=== PATIENT | female | born 1980 | race Caucasian/White ===

== ENCOUNTER 2020-06-07 08:00 | Outpatient (RCR) | payer BC ==
[~2020-06-07] VITALS: Ht 162.6 cm; Wt 79.5 kg
[2020-06-07] MEDS ORDERED: RIME75TA PO (08:14)
[2020-06-07] MEDS ORDERED: ZOLP10TA PO (08:41)
[2020-06-07] MEDS ORDERED: BACL10TA PO (08:41)
[2020-06-07] MEDS ORDERED: PREG225C PO (08:41)
[2020-06-07] MEDS ORDERED: MONT10TA97 PO (08:41)
[2020-06-07] MEDS ORDERED: DULO60CA6 PO (08:41)
== END 2020-06-07 11:52 | disposition home or self-care (01) ==
LOC: PREOP 08:00
PROVIDERS: ATTEND Podiatrist Foot & Ankle Surgery
DX: Z01.818 Encounter for other preprocedural examination (principal); M20.11 Hallux valgus (acquired), right foot

== ENCOUNTER 2020-06-12 06:06 | Day surgery (SDC) | payer BC ==
[~2020-06-12] VITALS: Ht 162.6 cm; Wt 79.5 kg
[2020-06-12] VITALS (8 sets, daily range): BP systolic 103–116; BP diastolic 62–84
[~2020-06-12 06:06] MED LIST: BACL10TA PO; DULO60CA6 PO; MONT10TA32 PO; PREG225C PO; RIME75TA PO; ZOLP10TA PO
[2020-06-12] MEDS ORDERED: LACTATED RINGERS 1,000 ML IV PRN (06:15)
[2020-06-12] MEDS ORDERED: ceFAZolin INJECTION 1,000 MG in WATER (STERILE) FOR INJECTION 10 ML IV ONE (06:15)
[2020-06-12] MEDS ORDERED: PROPOFOL INJECTION 50 ML IV ONE (07:01)
[2020-06-12] MEDS ORDERED: LIDOCAINE PF 2% 5 ML (XYLOCAINE) VIAL ONE (07:02)
[2020-06-12] MEDS ORDERED: MIDAZOLAM 2 MG/2 ML (VERSED) VIAL ONE (07:02)
[2020-06-12] MEDS ORDERED: fentaNYL INJECTION 100 MCG/2 ML AMP ONE (07:02)
[2020-06-12] MEDS ORDERED: BUPIVACAINE 0.5% 30 ML (SENSORCAINE) VIAL ONE (07:07)
[2020-06-12] MEDS ORDERED: LIDOCAINE 1% INJ 20 ML 20 ML VIAL ONE (07:07)
--- NOTE | 2020-06-12 07:48 | Progress Note-Pre Operative ---
Pre-Operative Progress Note H&P Reviewed The H&P was reviewed, patient examined and no changes noted. Date Seen by Provider: Jun 12, 2020 Time Seen by Provider: 07:48 Date H&P Reviewed: Jun 12, 2020 Time H&P Reviewed: 07:48 Pre-Operative Diagnosis: Soft tissue lesion right hallux LISA DANIELSON DPM Jun 12, 2020 07:48
[2020-06-12] MEDS ORDERED: HYDROmorphone 2 MG/ML VIAL (DILAUDID) IV ONE (08:45)
[2020-06-12] MEDS ORDERED: LACTATED RINGERS 1,000 ML IV SCH (08:45)
--- NOTE | 2020-06-12 08:45 | Progress Note-Post Operative ---
Post-Operative Progess Note Surgeon (s)/Barrel Leveler (s) Surgeon LISA DANIELSON DPM Barrel Leveler: none Pre-Operative Diagnosis Soft tissue lesion right hallux Post-Operative Diagnosis same, likely Ganglionic Cyst Procedure & Operative Findings Date of Procedure 06/12/20 Procedure Performed/Findings Excision of deep soft tissue mass, right foot Anesthesia Type MAC Estimated Blood Loss Estimated blood loss (mL): Minimal Specimens/Packing Specimens Removed Soft tissue lesion, right hallux Packing: none LISA DANIELSON DPM Jun 12, 2020 08:45
[2020-06-12] MEDS ORDERED: ONDANSETRON 4 MG/2 ML (SDV) Z0FRAN ONE (08:52)
--- NOTE | 2020-06-12 10:34 | OPERATIVE REPORT ---
DATE OF SERVICE: 06/12/2020 SURGEON: Verito Danielson DPM. PREOPERATIVE DIAGNOSIS: Soft tissue lesion, right hallux. POSTOPERATIVE DIAGNOSIS: Soft tissue lesion, right hallux. PROCEDURE PERFORMED: Excision of soft tissue lesion, right hallux, deep. WOUND CLASS: Clean. ANESTHESIA: Monitored anesthesia care. HEMOSTASIS: Pneumatic ankle tourniquet at 250 mmHg. INDICATIONS FOR PROCEDURE: This 40-year-old female presents complaining of a painful lesion to the right great toe. Conservative therapy is met with unsatisfactory results and the patient is agreeable to surgical intervention after the risk and complications were discussed at length. No guarantees were extended to the patient and she is willing to proceed. DESCRIPTION OF PROCEDURE: The patient was escorted to the operating room, where appropriate timeout was performed. The right foot was anesthetized in a Monreal block utilizing 15 mL of 1:1 mixture of 1% Xylocaine and 0.5% Marcaine. Appropriate ankle tourniquet was applied over several layers of padding. The right foot was then prepped and draped in a normal sterile manner. The right foot was then elevated, allowed to exsanguinate after which the tourniquet was inflated to 250 mmHg. Attention was then directed to the dorsal aspect of the right hallux where a 3 cm longitudinal linear incision was created just lateral to the soft tissue mass that was palpated along the proximal phalanx area. Blunt and sharp dissection was carried out. A well-encapsulated mass was identified, was approximately 1 cm in length. Even with careful blunt dissection and sharp dissection, the lesion ruptured with a clear gelatinous fluid coming from the lesion itself, grossly identified to be a ganglionic cyst. Again, careful blunt and sharp dissection was carried out into deeper tissue into the deep fascia, extended proximally and medially along the medial aspect of the metatarsophalangeal joint, where the soft tissue lesion was removed in toto and sent for gross and microscopic evaluation. No other abnormalities were identified at this time. The micro bleeding that was identified, was cauterized. The cautery was also utilized along the medial aspect of the first metatarsophalangeal joint, which I believe to be the source of the ganglionic cyst. The area was flushed with copious amounts of normal saline. Closure was then performed in layers. Deep closure was performed with 4-0 Vicryl, superficial with 4-0 Vicryl, skin closure with 4-0 Prolene in a horizontal mattress type stitch. Postoperative dressing consisted of Betadine soaked Adaptic, sterile 4 x 4, sterile Kerlix all secured with the Coban wrap. The patient tolerated the anesthesia and procedure well and was transported from the operating room to the recovery area with vital signs stable and vascular status intact to all digits of the right foot. She is to follow up in my office in 10 days' period of time or sooner if necessary. Job ID: [id number] DocumentID: [id number] Dictated Date: 06/12/2020 08:53:43 [employer] Date: 06/12/2020 10:32:52 Dictated By: VERITO DANIELOSN DPM
--- NOTE | 2020-06-12 10:51 | Anesthesia-General Post-Op ---
MAC Patient Condition Mental Status/LOC: Same as Preop Cardiovascular: Satisfactory Nausea/Vomiting: Absent Respiratory: Satisfactory Pain: Controlled Complications: Absent Post Op Complications Complications None Follow Up Care/Instructions Patient Instructions None needed. Anesthesiology Discharge Order Discharge Order Patient is doing well, no complaints, stable vital signs, no apparent adverse anesthesia problems. No complications reported per nursing. OLI HOLLY CRNA Jun 12, 2020 10:51
== END 2020-06-12 09:50 | disposition home or self-care (01) ==
LOC: SDC 06:06
PROVIDERS: ATTEND Podiatrist Foot & Ankle Surgery
DX: M67.471 Ganglion, right ankle and foot (principal); E66.9 Obesity, unspecified; Z68.30 Body mass index [BMI] 30.0-30.9, adult; Z79.899 Other long term (current) drug therapy; Z88.5 Allergy status to narcotic agent
CPT/HCPCS: 84703; 87081; 88304